=== PATIENT | male | born 1960 | race Caucasian/White ===

== ENCOUNTER 2022-01-25 08:51 | Emergency (ER) | payer MEDICAID | END 2022-01-25 09:30 | disposition left against medical advice (07) | LOC: ER 08:51 | DX: U07.1 COVID-19 (principal); Z53.21 Procedure and treatment not carried out due to patient leaving prior to being seen by health care provider ==

== ENCOUNTER 2024-01-21 06:29 | Emergency (ER) | payer MEDICARE, MEDICAID ==
[~2024-01-21] VITALS: Ht 182.9 cm; Wt 107.3 kg
[2024-01-21] MEDS: TETanus/Pertussis (Acell)/Diphther VAC/PF (Tdap-Adult) 0.5ml syringe IMVAC ONE (08:11)
[2024-01-21] MEDS: naproxen 500mg tablet PO ONE (08:24)
[2024-01-21] MEDS: amox tr/potassium clavulanate 875/125mg TAB PO ONE (08:27)
[2024-01-21] MEDS ORDERED: NAPR-56 PO (09:14)
[2024-01-21] MEDS ORDERED: AMOX-580 PO (09:14)
[2024-01-21 09:39] VITALS: BP 140/115; PULSE 87; RESP 16; TEMP 98.6; O2SAT 96
== END 2024-01-21 09:40 | disposition home or self-care (01) ==
LOC: ER 06:29
DX: S61.052A Open bite of left thumb without damage to nail, initial encounter (principal); I10 Essential (primary) hypertension; Z90.49 Acquired absence of other specified parts of digestive tract; W54.0XXA Bitten by dog, initial encounter; Y93.89 Activity, other specified; Y92.89 Other specified places as the place of occurrence of the external cause; Y99.8 Other external cause status
CPT/HCPCS: 73140; 90471; 90715; 99283; A6449